=== PATIENT | male | born 1970 | race Hispanic/Latino ===

== ENCOUNTER 2020-10-09 05:40 | Day surgery (SDC) | payer OTHER ==
[2020-10-07 13:42] VITALS: BMI 23.3
[2020-10-09] MEDS ORDERED: Fentanyl 100 MCG/2 ML VIAL ONE (06:14)
[2020-10-09] MEDS ORDERED: Ketorolac Tromethamine 30 MG/ML VIAL ONE ×2 (06:49→08:19)
[2020-10-09] MEDS ORDERED: Acetaminophen 500 MG TAB ONE (06:50)
[2020-10-09] MEDS ORDERED: Bupivacaine PF 0.5% 30 ML VIAL ONE (08:00)
[2020-10-09] MEDS ORDERED: XYLOCAINE 2%-EPI 1:100,000 20 ML VIAL ONE (08:00)
[2020-10-09] MEDS ORDERED: Midazolam HCl 2 mg/2 ml Vial ONE (08:06)
[2020-10-09] MEDS ORDERED: Ondansetron PF 4 MG/2 ML Vial ONE (08:19)
[2020-10-09] MEDS ORDERED: Rocuronium Bromide 10 MG/ML (10ML VIAL) ONE (08:19)
[2020-10-09] MEDS ORDERED: Lidocaine 1% PF 5 ML VIAL ONE (08:19)
[2020-10-09] MEDS ORDERED: Dexamethasone 20 MG/5 ML VIAL ONE (08:19)
[2020-10-09] MEDS ORDERED: PHENYLEPHRINE-NS 100 MCG/ML 10 ML SYRINGE ONE (08:19)
[2020-10-09] MEDS ORDERED: PROPOFOL 200 MG/20 ML VIAL ONE (08:19)
[2020-10-09] MEDS ORDERED: Glycopyrrolate 0.2 MG/ML 5 ML SYRINGE ONE (08:19)
== END 2020-10-09 11:50 | disposition home or self-care (01) ==
LOC: EDBD → SDC 05:40
PROVIDERS: ATTEND Specialist
PROC: 0YU54JZ Supplement Right Inguinal Region with Synthetic Substitute, Percutaneous Endoscopic Approach (ICD-10-PCS; principal; 2020-10-09)
DX: K40.90 Unilateral inguinal hernia, without obstruction or gangrene, not specified as recurrent (principal); F17.210 Nicotine dependence, cigarettes, uncomplicated
CPT/HCPCS: 93005; 93010; C1781; J0690; J1100; J1885; J2250; J2405; J2704; J3010; S0020